=== PATIENT | female | born 1955 | race Two or more races ===

== ENCOUNTER 2019-10-18 11:35 | Inpatient (IN) | payer OTHER ==
[~2019-10-18] VITALS: Ht 154.9 cm; Wt 59.4 kg
[2019-10-30] MEDS ORDERED: ZOCOR40 MG (14:13)
[2019-10-30] MEDS ORDERED: ZOCOR20 MG (14:14)
== END 2019-11-03 11:53 | disposition home or self-care (01) | DRG 334 ==
LOC: SURH 10-30 06:15 → O/R 10-30 06:15 → SURG 10-30 09:00 → SURH 10-30 19:02
PROVIDERS: ADMIT Colon & Rectal Surgery
PROC: 07BC4ZX Excision of Pelvis Lymphatic, Percutaneous Endoscopic Approach, Diagnostic (ICD-10-PCS; 2019-10-30)
PROC: 4A19X1Z Monitoring of Respiratory Capacity, External Approach (ICD-10-PCS; 2019-10-30)
PROC: 0DNW4ZZ Release Peritoneum, Percutaneous Endoscopic Approach (ICD-10-PCS; 2019-10-30)
PROC: 0DBP4ZZ Excision of Rectum, Percutaneous Endoscopic Approach (ICD-10-PCS; principal; 2019-10-30 10:30)
DX: K57.32 Diverticulitis of large intestine without perforation or abscess without bleeding (principal); E78.00 Pure hypercholesterolemia, unspecified; N73.6 Female pelvic peritoneal adhesions (postinfective)

== ENCOUNTER → 2021-01-02 | Outpatient (CLI) | payer OTHER ==
[~2021-01-02] MED LIST: ZOCOR20 MG; ZOCOR40 MG
== END | disposition home or self-care (01) ==
LOC: LAB 08:00 → ADM 13:15 → AMB-ENDOS 01-09 13:15 → EDSTATUS 01-09 13:15
PROVIDERS: ATTEND Colon & Rectal Surgery
DX: K57.20 Diverticulitis of large intestine with perforation and abscess without bleeding (principal); K57.30 Diverticulosis of large intestine without perforation or abscess without bleeding; K92.1 Melena; Z20.822 Contact with and (suspected) exposure to COVID-19